=== PATIENT | male | born 1960 | race Two or more races ===

== ENCOUNTER 2018-06-23 10:45 | Outpatient (CLI) | payer BC | END 2018-06-23 23:59 | disposition home or self-care (01) | LOC: WOU 10:45 | PROVIDERS: ATTEND Podiatrist Foot & Ankle Surgery | DX: E11.42 Type 2 diabetes mellitus with diabetic polyneuropathy (principal); M79.671 Pain in right foot; M79.672 Pain in left foot | CPT/HCPCS: G0463 ==